=== PATIENT | male | born 1985 | race Caucasian/White ===

== ENCOUNTER 2022-12-22 08:13 | Emergency (ER) | payer BC | END 2022-12-22 09:18 | disposition home or self-care (01) | LOC: JP.ED 08:13 | DX: S16.1XXA Strain of muscle, fascia and tendon at neck level, initial encounter (principal); S80.11XA Contusion of right lower leg, initial encounter; Z86.16 Personal history of COVID-19; W11.XXXA Fall on and from ladder, initial encounter | CPT/HCPCS: 99283 ==